=== PATIENT | male | born 2000 | race Asian ===

== ENCOUNTER 2021-02-02 13:25 | Emergency (ER) | payer OTHER, SELFPAY ==
[2021-02-02 13:26] VITALS: BP 128/91; PULSE 100; RESP 16; TEMP 37.6; O2SAT 99; BMI 22.6
--- NOTE | 2021-02-02 14:37 | EDS_ITS ---
HPI History of Present Illness Chief Complaint: Bite Informant: patient Occured/Mechanism Comment: Bit by bat Onset/Context/Timing Onset: Hours Context: Sudden Onset Timing: Intermittent Location: Ulnar Volar side of the distal right ring finger Current Severity: Mild Maximum Severity: Mild Worsened by: Nothing/not applicable Relieved by: not applicable not Associated Symptoms Associated Symptoms: Negative for Parasthesia, Weakness and Loss of Funtion Narrative Narrative: Patient presents from work after being bit by a bat right ring finger. Tetanus is up-to-date. He has no significant past medical history. He has no complaints. There is a bite eriberto noted right ring finger Tetanus Immunization: <5 years Prior similar symptoms: No Recent Illness/Hospitalization: No ROS ROS ED Constitutional Constitutional ED: Denies chills, fever(s), subjective or sweats Eyes Eyes: Denies blurry vision, change in vision or diplopia Hematologic/Lymphatic Hematologic/Lymphatic: Denies easy bleeding or easy bruising Allergic/Immunologic Allergic/Immunologic ED: Denies mouth swelling, tongue swelling or urticaria PFSH PFSH Allergy/AdvReac Type Severity Reaction Status Date / Time No Known Allergies Allergy Verified 02/02/21 13:26 no surgical history Social History (Updated 02/02/21 @ 14:[address] Neto Islas MD) household members: family Smoking Status: Never smoker alcohol intake: never substance use type: does not use EXAM Physical Exam Const Vital Signs: 02/02/21 13:26 Temperature 99.6 F H Temperature Source Oral Pulse Rate 100 Respiratory Rate 16 Blood Pressure 128/91 H Blood Pressure Mean 103 Pulse Ox 99 Oxygen Delivery Method Room Air Positive well nourished and well developed General Appearance ED: well developed HEENT normocephalic and atraumatic Eyes PERRL and EOMs intact bilaterally Neck full ROM and no lymphadenopathy Resp normal respiratory effort Cardio regular rate, regular rhythm and no murmurs Extremity full ROM Extremity Narrative: There is a bite eriberto volar distal side of the right ring finger. There is no evidence infection. There is no neurovascular compromise. Neuro oriented x3 and CN's II-XII intact bilaterally Sensorium / Orientation: alert Sensory Exam: sensory level loss detected Motor Exam: strength 5/5 throughout Psych mental status grossly normal and thought process normal Skin Lesions: no lesions Rashes: no rashes Trauma: puncture MDM MDM MDM Narrative Medical decision making narrative: Patient has what appears to be a bite eriberto ri ght ring finger due to a bath. He will be treated with rabies immunoglobulin and rabies vaccine. The immunoglobulin was injected by me. Half of the solution was injected into the right ring finger and the other half was injected into the area of the median nerve. The rabies immunoglobulin was injected by me. 2.5 cc was injected into the digit and 2.5 cc in the wrist. Discharge Plan Triage Chief Complaint: Bite ED Provider: Neto Islas Dx/Rx/DC Orders Clinical Impression: Bat bite of finger Instructions: ED Animal Bite (General) Primary Care Provider: Care Physician,No Primary Referrals: Care Physician,No Primary [Primary Care Provider] - Activity Restrictions/Additional Instructions: You will need to return to the emergency department on February 05, February 09 and February 16 for booster shots. Disposition Disposition: Home, Self Care
[2021-02-02] MEDS: Rabies Immune Globulin/PF 300 UNIT/ML, 5 ML VIAL 1500 UNIT IM (15:11)
[2021-02-02] MEDS: Rabies Vaccine,Human Diploid 2.5 UNITS Vial IM (15:13)
== END 2021-02-02 15:46 | disposition home or self-care (01) ==
PROVIDERS: Emergency Provider Emergency Medicine
DX: S61.254A Open bite of right ring finger without damage to nail, initial encounter (principal); W55.81XA Bitten by other mammals, initial encounter; Y93.89 Activity, other specified; Y92.89 Other specified places as the place of occurrence of the external cause; Y99.0 Civilian activity done for income or pay
CPT/HCPCS: 90375; 90675; 99282

== ENCOUNTER 2021-02-05 15:23 | Outpatient (CLI) | payer OTHER, SELFPAY ==
[2021-02-05 15:34] VITALS: BP 131/83; PULSE 100; RESP 16; TEMP 36.6; O2SAT 98; BMI 22.4
[2021-02-05] MEDS: Rabies Vaccine,Human Diploid 2.5 UNITS Vial IM (15:36)
--- NOTE | 2021-02-05 16:15 | ED.RN ---
PT 15 MIN POST SHOT TIME. NO REACTION.
== END 2021-02-05 16:18 | disposition home or self-care (01) ==
LOC: ED 02-06 06:15
DX: Z23 Encounter for immunization (principal)
CPT/HCPCS: 90675; 96372

== ENCOUNTER 2021-02-09 16:04 | Outpatient (CLI) | payer OTHER, SELFPAY ==
[2021-02-09 16:14] VITALS: BP 136/84; PULSE 81; RESP 14; TEMP 36.8; O2SAT 97
[2021-02-09] MEDS: Rabies Vaccine,Human Diploid 2.5 UNITS Vial IM (16:17)
--- NOTE | 2021-02-09 16:39 | NURSING ---
pt with no signs or symptoms of distress. pt to return on 02/16 for final shot.
== END 2021-02-09 17:28 | disposition home or self-care (01) ==
LOC: ED 17:29
DX: Z23 Encounter for immunization (principal)
CPT/HCPCS: 90675; 96372

== ENCOUNTER 2021-02-16 15:14 | Outpatient (CLI) | payer OTHER, SELFPAY ==
[2021-02-16 15:29] VITALS: BP 119/69; PULSE 71; RESP 16; TEMP 36.4; O2SAT 99; BMI 22.4
[2021-02-16] MEDS: Rabies Vaccine,Human Diploid 2.5 UNITS Vial IM (16:01)
[2021-02-16 16:07] VITALS: TEMP 36.4; BMI 22.4
== END 2021-02-16 15:15 ==
PROVIDERS: Emergency Provider Emergency Medicine; Visit Provider Emergency Medicine
DX: Z23 Encounter for immunization (principal)
CPT/HCPCS: 90675

== ENCOUNTER → 2021-06-16 16:05 | Outpatient (CLI) | payer OTHER, SELFPAY | PROVIDERS: Visit Provider Family Medicine | DX: Z23 Encounter for immunization (principal) ==

== ENCOUNTER 2021-09-01 16:22 | Emergency (ER) | payer OTHER, SELFPAY ==
[2021-09-01 16:22] VITALS: BP 160/90; PULSE 95; RESP 14; TEMP 36.8; O2SAT 96; BMI 25.1
--- NOTE | 2021-09-01 16:47 | EDS_ITS ---
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 He denies any bright red blood per rectum or melena, diarrhea, trouble urinating, fevers. He states he passed out several times, one of them he was sitting studying when he felt lightheaded and then passed out, the other he had stood up and then felt lightheaded and passed out. None of these episodes were associated with dyspnea, chest discomfort, headache, leg pain or swelling. He denies any recent injury or illness other than the symptoms. States he was seen at the wellness center once or twice and his blood pressure was elevated, he states in the 150s with diastolic around 100 at its w orst. He is healthy takes no medications for anything, nor has he been taking any [id number] medications for anything including NSAIDs. He denies any alcohol ingestion or other drugs, does not eat lots of spicy food, does not ingest carbonated beverages often. He does not have a known history of gastritis or stomach ulcers, but states that his dad has had ulcers. PFSH PFSH Medical History no medical history no medical history Home Medications ondansetron 8 mg PO Q8H PRN PRN #20 tab 09/01/21 [Rx Last Taken Unknown] pantoprazole 40 mg PO DAILY #30 tab 09/01/21 [Rx Last Taken Unknown] Allergy/AdvReac Type Severity Reaction Status Date / Time No Known Allergies Allergy Verified 09/01/21 16:24 Family History no significant family his Surgical History no surgical history no surgical history Social History household members: family Smoking Status: Never smoker alcohol intake: never substance use type: does not use ROS ROS ED Constitutional Constitutional ED: Denies chills or fever(s) Eyes Eyes: Denies change in vision or diplopia ENT ENT ED: Denies rhinorrhea or sore throat Cardiovascular Cardiovascular: Denies chest pain or palpitations Respiratory/Chest Respiratory/Chest: Denies cough or dyspnea Gastrointestinal Gastrointestinal: Reports as per HPI, abdominal pain, hematemesis, nausea and vomiting; Denies diarrhea Genitourinary Genitourinary ED: Denies dysuria or hematuria Musculoskeletal Musculoskeletal: Denies back pain or neck pain Integumentary Denies abscess or rash Neurologic Neurologic: Denies headache(s), paresthesias or weakness Psychiatric Psychiatric: Denies anxiety or suicidal thoughts EXAM Physical Exam Const Vital Signs: 09/01/21 16:22 Temperature 98.2 F Temperature Source Temporal Pulse Rate 95 Respiratory Rate 14 Blood Pressure 160/90 H Blood Pressure Mean 113 Pulse Ox 96 Oxygen Delivery Method Room Air Positive well nourished and well developed General Appearance ED: well developed and NAD HEENT Reports moist mucous membranes normocephalic and atraumatic Eyes PERRL and EOMs intact bilaterally Neck full ROM and supple Resp normal respiratory effort and clear to auscultation bilaterally Cardio regular rate, regular rhythm and no murmurs GI non-distended GI Narrative: Mild infraumbilical central abdominal tenderness. No guarding or rebound tenderness. No quadrant tenderness at all, no palpable mass or pulsatile mass palpable. Patient is of descent, has dark-colored skin, and has a birthmark and his left flank that has the same appearance as patchy ecchymosis, he states it is unchanged and chronic for him, he has no Mejía Suh or [place] sign other than this birthmark. Auscultation: normoactive bowel sounds Palpation: soft Back/Spine no CVA tenderness General Back: other FROM Extremity normal to inspection General Extremety ED: Negative for edema, pulses abnormal or tenderness General Extremity: Negative for edema or pulses abnormal Neuro oriented x3, CN's II-XII intact bilaterally and no sensory deficits noted Sensorium / Orientation: awake and alert Motor Exam: strength 5/5 throughout Skin no rashes or lesions noted and no wounds Skin Narrative: Birthmark left posterior flank see above otherwise negative MDM MDM MDM Narrative Medical decision making narrative: At this time his vitals are stable, his blood pressure is elevated, not a need of emergent lowering at this time. I recommend recheck and following up with primary care for this. With regards to his symptoms, gastritis/peptic ulcer disease would be the most common cause in this age group, we did discuss other less common causes that would require testing, he is adamant that at this time he does not want to undergo any testing here and prefers to be prescribed medications for now, and we discussed the pros and cons of this. Will place him on a PPI, give him a prescription for Zofran, refer him to GI, and back to the wellness center with regards to his blood pressure, and we discussed reasons to return he is comfortable with that plan. Discharge Plan Triage Chief Complaint: Nausea/Vomiting ED Provider: Dane Merrill Dx/Rx/DC Orders Clinical Impression: Vomiting, Hematemesis, Episode of hypertension Instructions: Controlling High Blood Pressure, ED Upper GI Bleeding (Stable), ED Vomiting (Adult) Prescriptions: New ondansetron [ondansetron] 4 MG tablet 8 mg PO Q8H PRN PRN (Reason: Nausea) Qty: 20 RF: 0 pantoprazole 40 mg tablet,delayed release (DR/EC) 40 mg PO DAILY Qty: 30 RF: 0 Primary Care Provider: Care Physician,No Primary Referrals: FriendDashawn DO [STAFF PHYSICIAN] - 1-2 Weeks [facility] [GROUP OF PHYSICIANS] - (Follow-up regarding your blood pressure) Disposition Disposition: Home, Self Care
== END 2021-09-01 17:10 | disposition home or self-care (01) ==
LOC: ED 17:05
PROVIDERS: Emergency Provider Emergency Medicine; PCP Pediatrics; Visit Provider Emergency Medicine
DX: K92.0 Hematemesis (principal); I10 Essential (primary) hypertension; R10.33 Periumbilical pain; R55 Syncope and collapse; Z79.899 Other long term (current) drug therapy
CPT/HCPCS: 99281

== ENCOUNTER 2021-09-19 01:54 | Emergency (ER) | payer OTHER, SELFPAY ==
[2021-09-19 01:56] VITALS: BP 143/73; PULSE 71; RESP 18; TEMP 36.6; O2SAT 98
--- NOTE | 2021-09-19 03:33 | EX.ED.DYSGE1 ---
HPI History of Present Illness Chief Complaint: Nausea/Vomiting Narrative Narrative: Patient is a 21-year-old male who states he has had months of recurrent vomiting. He states that he typically goes to bed and then will awaken vomit anywhere from 1-3 times and feel better. He states he was seen in the ER previously and placed on medication. He states however it did not seem to help too much. He denies any known sick contacts or any loose stool/diarrhea or abdominal pain. He states this evening he awoke and vomited once again and secondary to this decided to come to the hospital for repeat evaluation PFSH PFS Medical History no medical history Home Medications ondansetron 4 mg PO TID PRN PRN #21 tab 09/19/21 [Rx Last Taken Unknown] pantoprazole [Protonix] 20 mg PO BID 30 Days #60 tab 09/19/21 [Rx Last Taken Unknown] sucralfate [Carafate] 1 g PO TID 30 Days #90 tab 09/19/21 [Rx Last Taken Unknown] Allergy/AdvReac Type Severity Reaction Status Date / Time No Known Allergies Allergy Verified 09/19/21 02:03 Social History household members: family Smoking Status: Never smoker alcohol intake: never substance use type: does not use ROS ROS ED Constitutional Constitutional ED: Denies chills or fever(s) ENT ENT ED: Denies sore throat Cardiovascular Cardiovascular: Denies chest pain Respiratory/Chest Respiratory/Chest: Denies cough or dyspnea Gastrointestinal Gastrointestinal: Reports nausea and vomiting; Denies abdominal pain or diarrhea Genitourinary Genitourinary ED: Denies dysuria Musculoskeletal Musculoskeletal: Denies myalgias Integumentary Denies rash Neurologic Neurologic: Denies headache(s) Hematologic/Lymphatic Hematologic/Lymphatic: Denies easy bleeding or easy bruising EXAM Physical Exam Const Vital Signs: 09/19/21 01:56 09/19/21 03:45 Temperature 97.9 F Temperature Source Oral Pulse Rate 71 79 Respiratory Rate 18 18 Blood Pressure 143/73 H 141/68 H Blood Pressure Mean 96 Pulse Ox 98 Oxygen Delivery Method Room Air Positive well nourished and well developed General Appearance ED: well developed HEENT Reports moist mucous membranes Eyes PERRL and EOMs intact bilaterally General Eye ED: Negative for scleral icterus Neck supple Resp normal respiratory effort and clear to auscultation bilaterally Cardio regular rate and regular rhythm GI normal to inspection, nondistended, normoactive bowel sounds, non-tender, non-distended and no masses GI Narrative: No voluntary guarding or rigidity no pulsatile mass Auscultation: normoactive bowel sounds Palpation: soft Extremity normal to inspection Neuro oriented x3 and CN's II-XII intact bilaterally Sensorium / Orientation: alert Motor Exam: strength 5/5 throughout Psych mental status grossly normal Skin no rashes or lesions noted General Skin Exam: Negative for jaundice MDM MDM MDM Narrative Medical decision making narrative: Patient presented to the ER in no acute distress with a soft nonsurgical abdomen. Moreover his history of throwing up for the last few months mainly at night is most consistent with an acid reflux exacerbation. I discussed with patient about obtaining blood work and imaging studies based on the prolonged nature of his symptoms with no improvement from his previous visit. Patient states that he does not want any type of testing done at this time but is just seeking treatment for his symptoms. As I do feel it is GERD as the most likely culprit I will place him on Protonix and Carafate as well as Zofran to help with nausea and vomiting control. Patient states he is acceptable with this plan and will return to the hospital if he has any further concerns or changes his mind about testing options Discharge Plan Triage Chief Complaint: Nausea/Vomiting ED Provider: Roberto Carcamo Dx/Rx/DC Orders Clinical Impression: Gastroesophageal reflux disease Instructions: GERD Lifestyle Changes, ED GERD (Adult) Prescriptions: New pantoprazole [Protonix] 20 mg tablet,delayed release (DR/EC) 20 mg PO BID 30 Days Qty: 60 RF: 2 sucralfate [Carafate] 1 gram tablet 1 g PO TID 30 Days Qty: 90 RF: 0 ondansetron 4 mg tablet,disintegrating 4 mg PO TID PRN PRN (Reason: nausea and vomiting) Qty: 21 RF: 0 Primary Care Provider: Oscar Luo Referrals: Oscar Luo MD [Primary Care Provider] - Activity Restrictions/Additional Instructions: Please try to sleep with your head elevated as well as decrease any spicy acidic foods in your diet to help reduce symptoms. Please follow-up your family doctor for further evaluation especially if there is no improvement with treatment Disposition Disposition: Home, Self Care Discharge Date/Time: 09/19/21 03:46
[2021-09-19] MEDS: Ondansetron ODT 4 MG Tablet PO (03:41)
[2021-09-19] MEDS: Pantoprazole Sodium 40 MG Tablet PO (03:41)
[2021-09-19] MEDS: Sucralfate 1 GM Tablet PO (03:43)
[2021-09-19 03:45] VITALS: BP 141/68; PULSE 79; RESP 18
== END 2021-09-19 03:46 | disposition home or self-care (01) ==
PROVIDERS: Emergency Provider Emergency Medicine; PCP Pediatrics; Visit Provider Emergency Medicine
DX: K21.9 Gastro-esophageal reflux disease without esophagitis (principal)
CPT/HCPCS: 99283

== ENCOUNTER 2021-12-03 13:17 | Emergency (ER) | payer OTHER, SELFPAY ==
[2021-12-03 13:18] VITALS: BP 122/95; PULSE 113; RESP 18; TEMP 36.3; O2SAT 96; BMI 23.9
--- NOTE | 2021-12-03 13:44 | EX.ED.DYSGE1 ---
HPI History of Present Illness Chief Complaint: Cough Informant: patient Narrative Narrative: 21-year-old male presenting to the emergency room with 8 months of a chronic cough. Tells me that occasionally be productive of mucus but in the past month he states that he started to see some blood intermittently with it. He notes the cough is worse at night. It is worse after eating food and he notes indigestion. He denies any seasonal allergies. No chest pain or DVT PE risk factors. He has not sought treatment for it but shows the Sunday hol weekend to come in because he works Sunday through Sunday and goes to bed early. He has no primary care doctor. He reports that he has had some night sweats but no weight loss. He notes that he has had negative tuberculosis test in the past. Denies any urinary or bowel symptoms. He also notes for the past week he has had a pain in his low back in the midline around the L4-L5 region. He denies any injury. No IV drug use no steroid use no red flag history. No radicular symptoms PFSH PFSH Medical History no medical history no medical history Home Medications NK 12/03/21 [History Last Taken Unknown] pantoprazole [Protonix] 40 mg PO DAILY #30 tab 12/03/21 [Rx Last Taken Unknown] Allergy/AdvReac Type Severity Reaction Status Date / Time No Known Allergies Allergy Verified 12/03/21 13:18 Surgical History no surgical history no surgical history Social History household members: family Smoking Status: Never smoker alcohol intake: never substance use type: does not use ROS ROS ED Constitutional Constitutional ED: Denies chills, fever(s) or weight loss Eyes Eyes: Denies change in vision or diplopia ENT ENT ED: Denies ear pain, rhinorrhea or sore throat Cardiovascular Cardiovascular: Denies chest pain, orthopnea, palpitations or racing heartbeat Respiratory/Chest Respiratory/Chest: Reports cough, sputum and other Details: Hemoptysis ; Denies dyspnea or orthopnea Gastrointestinal Gastrointestinal: Denies abdominal pain, diarrhea, nausea or vomiting Genitourinary Genitourinary ED: Denies dysuria, hematuria or urinary frequency Musculoskeletal Musculoskeletal: Reports back pain; Denies arthralgias or myalgias Integumentary Denies abscess or rash Neurologic Neurologic: Denies headache(s), paresthesias or weakness Psychiatric Psychiatric: Denies anxiety, depression, suicidal ideation or suicidal thoughts Endocrine Endocrinology: Denies polydipsia, polyphagia or polyuria Allergic/Immunologic Allergic/Immunologic ED: Denies mouth swelling, tongue swelling or urticaria EXAM Physical Exam Const Vital Signs: 12/03/21 13:18 12/03/21 13:26 Temperature 97.3 F L Temperature Source Temporal Pulse Rate 113 H Respiratory Rate 18 Respiratory Effort Normal Non-Labored Respiratory Depth Normal Respiratory Pattern Normal Blood Pressure 122/95 H Blood Pressure Mean 104 Pulse Ox 96 Oxygen Delivery Method Room Air Positive well nourished and well developed General Appearance ED: well developed HEENT Reports normocephalic, head/scalp atraumatic, TM's clear and moist mucous membranes Negative for trauma Tympanic Membrane ED: Yes TM's clear Eyes PERRL and EOMs intact bilaterally Neck no lymphadenopathy, supple and no JVD Resp normal respiratory effort and clear to auscultation bilaterally Cardio regular rate, regular rhythm and no murmurs GI normal to inspection, nondistended, normoactive bowel sounds and non-tender Palpation: soft Back/Spine no CVA tenderness and normal ROM Back/Spine Narrative: Patient reports tenderness to palpation over the spinous processes of L4-L5 Extremity normal to inspection General Extremety ED: Negative for edema General Extremity: Negative for edema Neuro oriented x3 and CN's II-XII intact bilaterally Sensorium / Orientation: alert Motor Exam: strength 5/5 throughout Psych mental status grossly normal Mood & Affect: Negative for depressed or tearful Skin no rashes or lesions noted and no wounds MDM MDM MDM Narrative Medical decision making narrative: My interpretation of the chest x-ray is no acute process. My interpretation of the plain films of the lumbar spine is no acute process. White count is low at 3.2. Hemoglobin 16 with a platelet count of 199. CMP is normal. Patient has a chronic cough. He has symptoms of GERD. I think it is reasonable to start him on a daily Protonix have and elevate his head of his bed at night. Avoidance of late night food. He should establish primary care. Patient is comfortable with this plan Lab Data Attestation: I reviewed the patient's lab results. Labs: Laboratory Results - last 24 hr 12/03/21 12/03/21 14:05 14:05 WBC 3.2 L RBC 5.56 Hgb 16.0 Hct 48.0 MCV 86.3 MCH 28.8 MCHC 33.3 RDW Std Deviation 39.1 RDW Coeff of Lilia 12.3 Plt Count 199 MPV 10.0 Immature Gran % (Auto) 0.300 Neut % (Auto) 55.0 Lymph % (Auto) 32.2 [place] % (Auto) 9.7 Eos % (Auto) 2.5 Baso % (Auto) 0.3 Absolute Neuts (auto) 1.8 L Absolute Lymphs (auto) 1.03 Nucleated RBC % 0 Sodium 136 Potassium 4.3 Chloride 103 Carbon Dioxide 27.0 Anion Gap 6 BUN 11 Creatinine 0.92 Estim Creat Clear Calc 140.58 Est GFR (MDRD) Af Amer 134 Est GFR (MDRD) Non-Af 111 BUN/Creatinine Ratio 12.0 Glucose 89 Calcium 9.2 Total Bilirubin 0.30 AST 24 ALT 33 Alkaline Phosphatase 89 Total Protein 8.0 Albumin 4.1 Globulin 3.9 Albumin/Globulin Ratio 1.1 Radiography Diagnostic Testing: Clinical Impression(s) from Imaging Studies Lumbar Spine X-Ray 12/03/21 13:52 IMPRESSION: Normal x-ray examination of the lumbar spine. Electronically Signed: Lanre Abreu MD at 14:44 EDT Reading Location ID and State: [id number] / [employer] , Service support , Chest X-Ray 12/03/21 14:05 IMPRESSION: Normal x-ray examination of the chest. Electronically Signed: Lanre Abreu MD at 14:43 EDT , Discharge Plan Triage Chief Complaint: Cough Other Complaint: Back Fatigue GI Bleed ED Provider: Kwadwo Caballero Dx/Rx/DC Orders Clinical Impression: Chronic cough, GERD (gastroesophageal reflux disease) Instructions: ED Cough Chronic Uncertain Cause Adult, ED GERD (Adult) Prescriptions: New pantoprazole [Protonix] 40 mg tablet,delayed release (DR/EC) 40 mg PO DAILY Qty: 30 RF: 1 No Action NK RF: 0 Primary Care Provider: Oscar Luo Referrals: Oscar Luo MD [Primary Care Provider] - Saw Benjamin MD [STAFF PHYSICIAN] - As Needed (if not improving ) Lulu Monae MD [STAFF PHYSICIAN] - As Needed (for primary care) Disposition Disposition: Home, Self Care
--- NOTE | 2021-12-03 13:52 | RAD_ITS ---
STUDY: X-RAY - LUMBAR SPINE REASON FOR EXAM: Male, 21 years old. pain TECHNIQUE: 2 view(s) of the lumbar spine were obtained. COMPARISON: None FINDINGS: Normal lumbar lordosis. There is no substantial scoliosis. There is a normal alignment of the vertebrae. Normal vertebral bodies and endplates. Normal disc space heights. The soft tissue structures are unremarkable. RAD/Lumbar Spine 2 or 3 Views IMPRESSION: Normal x-ray examination of the lumbar spine. Electronically Signed: Lanre Abreu MD at 14:44 EDT ,
--- NOTE | 2021-12-03 14:05 | RAD_ITS ---
STUDY: X-RAY CHEST REASON FOR EXAM: Male, 21 years old. cough TECHNIQUE: Single AP portable view of the chest. COMPARISON: None. FINDINGS: The lungs are clear and expanded. There is no demonstrated pleural abnormality. Normal size heart. Normal mediastinum and nandini. Normal visualized pulmonary arteries. Normal visualized aortic arch and descending thoracic aorta. Normal visualized thoracic spine. Normal visualized ribs, clavicles, and shoulders. There is no demonstrated abnormality of the visualized soft tissue structures of the upper abdomen. RAD/Chest 1 View (Portable) IMPRESSION: Normal x-ray examination of the chest. Electronically Signed: Lanre Abreu MD at 14:43 EDT ,
[2021-12-03 14:11] LABS: Absolute Lymphocyte Count 1.03 X10^3/uL (0.83-4.51); Absolute Neutrophil Count 1.8 X10^3/uL (2.0-7.7); Basophil# 0.01 X10^3/uL; Basophil% 0.3 % (0-1); Eosinophil# 0.08 X10^3/uL; Eosinophils% 2.5 % (0-5); Lymphocyte # 1.03 X10^3/ul (0.83-4.51); Lymphocyte % 32.2 % (19-41); Mean Corp Hgb Conc 33.3 g/dL (32-36); Mean Corpuscular Hgb 28.8 pg (27.0-32.0); Mean Corpuscular Volume 86.3 fL (80-94); Monocyte# 0.31 X10^3/uL; Monocyte% 9.7 % (0-10); NRBC Flagged by Analyzer 0 % (0-5); Neutrophil # 1.76 X10^3/uL (2.7-7.7); Platelet Count 199 K/mm3 (150-450); RBC Distribution Width CV 12.3 % (11.6-14.6); RBC Distribution Width SD 39.1 fl (35.1-43.9); Red Blood Count 5.56 M/mm3 (4.6-6.2); White Blood Count 3.2 K/mm3 (4.4-11.0)
[2021-12-03 14:27] LABS: ALB/GLOB Ratio 1.1 RATIO (0.9-2.4); AST(SGOT) 24 U/L (15-37); Alanine Aminotransfer ALT/SGPT 33 U/L (16-61); Albumin, Serum 4.1 g/dL (3.2-5.0); Alkaline Phosphatase 89 U/L (45-117); Anion Gap 6 (5-15); BUN 11 mg/dL (7-18); Calcium,Total 9.2 mg/dL (8.5-10.1); Chloride 103 mmol/L (98-107); Creatinine, Serum 0.92 mg/dL (0.70-1.30); EST Glomerular Filtration Rate 111 mL/min (>60); Est Glom Filt Rate - Afr Amer 134 mL/min (>60); Estimated Creatinine Clearance 140.58 ml/min; Globulin 3.9 g/dL (2.2-4.2); Glucose 89 mg/dL (74-106); Potassium 4.3 mmol/L (3.5-5.1); Sodium Level 136 mmol/L (136-145)
== END 2021-12-03 14:58 | disposition home or self-care (01) ==
PROVIDERS: Emergency Provider Emergency Medicine; PCP Pediatrics; Visit Provider Emergency Medicine
DX: R05.3 Chronic cough (principal); R53.83 Other fatigue; K21.9 Gastro-esophageal reflux disease without esophagitis
CPT/HCPCS: 71045; 72100; 80053; 85025; 87811; 99282; A4216